=== PATIENT | male | born 1985 | race Caucasian/White ===

== ENCOUNTER 2020-08-06 08:07 | Outpatient (REF) | payer BC, SELFPAY ==
[2020-08-06 13:29] LABS: SARS COV2 PCR INHOUSE NEGATIVE (Negative)
== END 2020-08-06 08:08 | disposition home or self-care (01) ==
LOC: HO.LAB 08:07
PROVIDERS: Visit Provider Internal Medicine
DX: Z20.822 Contact with and (suspected) exposure to COVID-19 (principal)
CPT/HCPCS: C9803; U0003

== ENCOUNTER 2020-09-04 07:56 | Outpatient (REF) | payer BC, SELFPAY | END 2020-09-04 07:57 | disposition home or self-care (01) | LOC: HO.LAB 07:56 | PROVIDERS: Visit Provider Internal Medicine | DX: Z20.822 Contact with and (suspected) exposure to COVID-19 (principal) | CPT/HCPCS: C9803; U0003; U0005 ==

== ENCOUNTER 2020-12-11 07:12 | Outpatient (REF) | payer BC, SELFPAY ==
--- NOTE | ~2020-12-11 | XR_ITS ---
EXAMINATION: XR KNEE, LEFT CLINICAL INFORMATION: Left knee pain. COMPARISON: None TECHNIQUE: AP, lateral, tunnel, and sunrise views of the left knee. FINDINGS: Small tricompartmental marginal osteophytes. Mild lateral compartment joint space narrowing. No fracture or malalignment. Bone mineralization is normal. Trace joint effusion. No osseous loose bodies. Soft tissues are unremarkable. XR/XR knee LT 4V IMPRESSION: 1. Mild tricompartmental osteoarthritis, more notable in the lateral compartment. 2. Trace joint effusion
== END 2020-12-11 07:13 | disposition home or self-care (01) ==
LOC: HO.XRAY 07:12
PROVIDERS: PCP Internal Medicine; Visit Provider Internal Medicine
DX: M25.562 Pain in left knee (principal)
CPT/HCPCS: 73564